=== PATIENT | female | born 1995 | race Caucasian/White ===

== ENCOUNTER 2017-02-09 19:41 | Emergency (ER) | payer MEDICAID ==
[~2017-02-09] VITALS: Ht 170.2 cm; Wt 90.7 kg
[2017-02-09 20:10] VITALS: BP 117/74; PULSE 77; RESP 16; TEMP 97.9; O2SAT 97
[2017-02-09 21:12] LABS: BILIRUBIN,URINE NEGATIVE (NEGATIVE); BLOOD, URINE NEGATIVE (NEGATIVE); CLARITY/URINE CLEAR (CLEAR); COLOR,URINE YELLOW (YELLOW); GLUCOSE,URINE NEGATIVE (NEGATIVE); KETONES,URINE NEGATIVE (NEGATIVE); LEUKOCYTE ESTERASE ,URINE NEGATIVE (NEGATIVE); NITRITE, URINE NEGATIVE (NEGATIVE); PH,URINE 7.5 (5.0-8.0); PROTEIN URINE NEGATIVE (NEGATIVE); UROBILINOGEN,URINE 0.2 (0.2-1.0)
--- NOTE | 2017-02-09 21:35 | NUR ---
Patient to ER bed 6 to gown for evaluation. Side rails up. Report given to KETTY MORGAN.
--- NOTE | 2017-02-09 21:45 | NUR ---
Pt brought in by grandmother in stable condition. Pt c/o +nausea w/ generalized abd pain 10 since yesterday. Pt stated that she has been feeling like this for the past 3 days. Pt does not appear to be in distress at this time and is on her phone. -n/v/d -sob. Will continue to monitor
--- NOTE | 2017-02-09 22:15 | NUR ---
ER at bedside examining patient.
[2017-02-09] MEDS ORDERED: KETOROLAC TROMETHAMINE 60 MG/2 ML VIAL IM ONE (22:30)
[2017-02-09] MEDS ORDERED: ONDANSETRON 4 MG ODT TAB PO ONE (22:30)
[2017-02-09 23:07] VITALS: BP 117/74; PULSE 77; RESP 16; TEMP 97.9; O2SAT 97
--- NOTE | 2017-02-09 23:07 | NUR ---
Patient given written and verbal discharge instructions and verbalizes understanding. ER MD Stephenson discussed with patient the results and treatment provided. Patient in stable condition. ID arm band removed. Rx of Zofran, Prilosec and Motrin given. Patient educated on pain management and to follow up with PMD. Pain Scale 0/10. Opportunity for questions provided and answered.
== END 2017-02-09 23:07 | disposition home or self-care (01) ==
LOC: SED 19:41
DX: R11.2 Nausea with vomiting, unspecified (principal); R10.13 Epigastric pain
CPT/HCPCS: 81003; 96372; 99283; J1885; Q0162

== ENCOUNTER 2019-06-18 18:58 | Emergency (ER) | payer MEDICAID ==
[~2019-06-18] VITALS: Ht 170.2 cm; Wt 72.6 kg
[2019-06-18 19:22] VITALS: BP_SYST 139
[2019-06-18 19:59] LABS: BASOPHILS % (AUTO) 0.2 % (0.0-2.0); EOSINOPHILS # (AUTO) 0.1 K/uL (0.0-0.4); EOSINOPHILS % (AUTO) 0.8 % (0.0-4.0); HEMATOCRIT 41.2 % (36-48); HEMOGLOBIN 13.9 g/dL (12.0-16.0); LYMPHOCYTES # (AUTO) 1.2 K/uL (1.0-5.5); LYMPHOCYTES % (AUTO) 17.5 % (20.5-51.5); MEAN CORPUSCULAR HEMOGLOBIN 30 pg (27-31); MEAN CORPUSCULAR HGB CONC 34 % (32-36); MEAN CORPUSCULAR VOLUME 88 fL (79.0-98.0); MONOCYTES # (AUTO) 0.4 K/uL (0.0-1.0); MONOCYTES % (AUTO) 5.9 % (1.7-9.3); NEUTROPHILS # (AUTO) 5.1 K/uL (1.8-7.7); NEUTROPHILS % (AUTO) 75.6 % (40.0-70.0); PLATELET COUNT (AUTO) 255 K/uL (130-430); RED BLOOD CELL COUNT(AUTO) 4.66 MIL/uL (4.2-6.2); RED CELL DISTRIBUTION WIDTH 12.7 % (9.0-15.0); WHITE BLOOD COUNT (AUTO) 6.7 K/uL (4.8-10.8)
[2019-06-18 20:10] LABS: CALCIUM 10.1 mg/dL (8.4-11.0); CREATININE 0.76 mg/dL (0.55-1.30); POTASSIUM 3.7 mmol/L (3.5-5.1)
[2019-06-18 20:15] LABS: ALBUMIN 4.2 g/dL (3.4-4.8); TOTAL BILIRUBIN 0.5 mg/dL (0.0-1.0)
[2019-06-18] MEDS ORDERED: NACL 0.9% 1,000 ML IV ONE (21:22)
[2019-06-18] MEDS ORDERED: PANTOPRAZOLE SODIUM 40 MG/VIAL (PROTONIX) IVP ONE (21:30)
[2019-06-18] MEDS ORDERED: ONDANSETRON HCL 4 MG/2 ML VIAL IVP ONE (21:30)
[2019-06-18] MEDS ORDERED: MORPHINE 4 MG/ML INJ. SYRINGE IVP ONE (21:30)
[2019-06-18] MEDS ORDERED: DIPHENHYDRAMINE INJ 50 MG/ML VIAL IVP ONE (21:30)
[2019-06-18 22:04] LABS: BILIRUBIN,URINE NEGATIVE (NEGATIVE); BLOOD, URINE NEGATIVE (NEGATIVE); CLARITY/URINE HAZY (CLEAR); COLOR,URINE YELLOW (YELLOW); GLUCOSE,URINE NEGATIVE (NEGATIVE); KETONES,URINE 1+ (NEGATIVE); LEUKOCYTE ESTERASE ,URINE NEGATIVE (NEGATIVE); NITRITE, URINE NEGATIVE (NEGATIVE); PH,URINE >=9.0 (5.0-8.0); PROTEIN URINE NEGATIVE (NEGATIVE); UROBILINOGEN,URINE 0.2 (0.2-1.0)
[2019-06-19] MEDS ORDERED: IOHEXOL 100 ML IV ONE (00:05)
[2019-06-19] MEDS ORDERED: DIPHENHYDRAMINE INJ 50 MG/ML VIAL IVP ONE (01:15)
[2019-06-19] MEDS ORDERED: MORPHINE 4 MG/ML INJ. SYRINGE IVP ONE (01:15)
[2019-06-19] MEDS ORDERED: NS 500 ML IV ONE (01:15)
[2019-06-19 02:21] VITALS: BP_SYST 116
== END 2019-06-19 02:21 | disposition home or self-care (01) ==
LOC: SED 18:58
DX: A08.4 Viral intestinal infection, unspecified (principal)
CPT/HCPCS: 36415; 74177; 80053; 81003; 81025; 83690; 85025; 96361 ×2; 96374; 96375; 96376; 99284; C9113; J1200 ×2; J2270 ×2; J2405; J7030; J7040; Q9967

== ENCOUNTER 2019-06-20 03:21 | Emergency (ER) | payer MEDICAID ==
[~2019-06-20] VITALS: Ht 170.2 cm; Wt 72.6 kg
[2019-06-20 03:34] VITALS: BP_SYST 128
--- NOTE | 2019-06-20 03:34 | NUR ---
Pt ambulatory to bed 4 for evaluation.
--- NOTE | 2019-06-20 03:40 | NUR ---
Patient AOx4, ambulatory, presents to ER with complaint of constant mid abdominal pain 10/10 x3 hours, vomiting, and dizziness. Patient states she was seen on 06/18/19 for same complaint. Patient has been taking medication: [place], zofran, and bentyl without relief. Last dose of [place] taken at 2100. LBM 30 min ago. Patient states hx of chronic gastritis and fatty liver.
[2019-06-20] MEDS ORDERED: NACL 0.9% 1,000 ML IV ONE (03:44)
--- NOTE | 2019-06-20 03:50 | NUR ---
ER MD Cotton at bedside for medical evaluation.
--- NOTE | 2019-06-20 04:02 | NUR ---
# 22 gauge angiocath placed to left hand. Use of asceptic technique. Opsite placed over site. Blood return noted. Blood for lab drawn from site. Flushed with 10 cc of normal saline. No evidence of infiltration noted. Patient tolerated well.
[2019-06-20 04:27] LABS: BASOPHILS % (AUTO) 0.7 % (0.0-2.0); EOSINOPHILS % (AUTO) 0.4 % (0.0-4.0); HEMOGLOBIN 13.6 g/dL (12.0-16.0); LYMPHOCYTES # (AUTO) 1.4 K/uL (1.0-5.5); LYMPHOCYTES % (AUTO) 20.9 % (20.5-51.5); MEAN CORPUSCULAR HEMOGLOBIN 30 pg (27-31); MEAN CORPUSCULAR HGB CONC 35 % (32-36); MEAN CORPUSCULAR VOLUME 87 fL (79.0-98.0); MONOCYTES # (AUTO) 0.3 K/uL (0.0-1.0); MONOCYTES % (AUTO) 4.3 % (1.7-9.3); NEUTROPHILS # (AUTO) 4.9 K/uL (1.8-7.7); NEUTROPHILS % (AUTO) 73.7 % (40.0-70.0); PLATELET COUNT (AUTO) 260 K/uL (130-430); RED BLOOD CELL COUNT(AUTO) 4.48 MIL/uL (4.2-6.2); RED CELL DISTRIBUTION WIDTH 12.6 % (9.0-15.0); WHITE BLOOD COUNT (AUTO) 6.7 K/uL (4.8-10.8)
[2019-06-20 04:37] LABS: CLARITY/URINE CLEAR (CLEAR); COLOR,URINE YELLOW (YELLOW)
[2019-06-20 04:38] LABS: BILIRUBIN,URINE NEGATIVE (NEGATIVE); BLOOD, URINE NEGATIVE (NEGATIVE); GLUCOSE,URINE NEGATIVE (NEGATIVE); KETONES,URINE 1+ (NEGATIVE); LEUKOCYTE ESTERASE ,URINE NEGATIVE (NEGATIVE); NITRITE, URINE NEGATIVE (NEGATIVE); PROTEIN URINE NEGATIVE (NEGATIVE); UROBILINOGEN,URINE 0.2 (0.2-1.0)
--- NOTE | 2019-06-20 04:45 | NUR ---
IVF infusing with no s/s of infiltration at this time. Will cont to monitor.
[2019-06-20 04:50] LABS: CALCIUM 9.8 mg/dL (8.4-11.0); CREATININE 0.73 mg/dL (0.55-1.30); POTASSIUM 3.7 mmol/L (3.5-5.1)
[2019-06-20 04:56] LABS: ALBUMIN 4.3 g/dL (3.4-4.8); TOTAL BILIRUBIN 0.4 mg/dL (0.0-1.0)
[2019-06-20 05:01] LABS: PROTHROMBIN TIME 10.4 SECS (9.5-12.5)
[2019-06-20] MEDS ORDERED: KETOROLAC TROMETHAMINE 30 MG VIAL IVP ONE (05:45)
[2019-06-20 05:47] LABS: BARBITURATE, URINE NEGATIVE (NEG <=200); BENZODIAZEPINE, URINE NEGATIVE (NEG <=150); CANNABINOID, URINE POSITIVE (NEG <=50); COCAINE, URINE NEGATIVE (NEG <=150); METHAMPHETAMINES SCREEN,URINE NEGATIVE (NEG <=500); OPIATE, URINE POSITIVE (NEG <=100); PHENCYCLIDINE SCREEN,URINE NEGATIVE (NEG <=25); UR TRICYCLIC ANTIDEPRESSANTS NEGATIVE (NEG <=300); URINE AMPHETAMINE NEGATIVE (NEG <=500); URINE METHADONE NEGATIVE (NEG <=200); URINE OXYCODONE SCREEN NEGATIVE (NEG <=100); URINE PROPOXYPHENE SCREEN NEGATIVE (NEG <=300)
[2019-06-20] MEDS ORDERED: PROMETHAZINE INJ.Non-Formulary 25 MG/ML AMP IVP ONE (06:00)
[2019-06-20] MEDS ORDERED: MAG HYDROX/AL HYDROX/SIMETH 30 ML, LIDOCAINE VISCOUS 2% 15ML (PO) 10 ML, DICYCLOMINE HC... PO ONE ×3 (06:45)
[2019-06-20] MEDS ORDERED: LORazepam 2 MG/ML VIAL (FOR ER USE) IVP ONE (06:45)
--- NOTE | 2019-06-20 07:05 | NUR ---
Report from Marguerite HDEZ.
--- NOTE | 2019-06-20 07:15 | NUR ---
Patient izaiah in [facility]. I woke up patient to request she call for ride home, she is to be discharged.
[2019-06-20 07:44] VITALS: BP_SYST 124
--- NOTE | 2019-06-20 07:45 | NUR ---
Patient given written and verbal discharge instructions and verbalizes understanding. ER MD discussed with patient the results and treatment provided. Patient in stable condition. ID arm band removed. IV catheter removed intact and dressing applied, no active bleeding. Rx of Protonix & ativan given. Patient educated on pain management and to follow up with PMD. Pain Scale 6/10 tolerable for patient. Opportunity for questions provided and answered. Medication side effect fact sheet provided.
== END 2019-06-20 07:45 | disposition home or self-care (01) ==
LOC: SED 03:21
DX: K29.70 Gastritis, unspecified, without bleeding (principal); F41.9 Anxiety disorder, unspecified
CPT/HCPCS: 36415; 74021; 80053; 80307; 81003; 81025; 82150; 83690; 85025; 85610; 96361; 96374; 96375; 99284; J1885; J2001; J2060; J7030; J2550